=== PATIENT | male | born 1995 | race Caucasian/White ===

== ENCOUNTER 2016-08-15 19:14 | Emergency (ER) | payer OTHER ==
[~2016-08-15] VITALS: Ht 172.7 cm; Wt 86.4 kg
[2016-08-15 19:17] VITALS: BP 138/73; TEMP 98.9
[2016-08-15] MEDS ORDERED: ZOLOFT 100MG100 MG PO (19:20)
[2016-08-15] MEDS ORDERED: NORCO 325 MG-51 TAB PO (20:54)
[2016-08-15 21:09] VITALS: PULSE 74
== END 2016-08-15 21:09 | disposition home or self-care (01) ==
LOC: COL.ER 19:14
DX: S06.0X0A Concussion without loss of consciousness, initial encounter (principal); S40.212A Abrasion of left shoulder, initial encounter; S40.211A Abrasion of right shoulder, initial encounter; S40.812A Abrasion of left upper arm, initial encounter; S40.811A Abrasion of right upper arm, initial encounter; S00.03XA Contusion of scalp, initial encounter; S00.83XA Contusion of other part of head, initial encounter; M54.2 Cervicalgia; Y04.0XXA Assault by unarmed brawl or fight, initial encounter; Y92.039 Unspecified place in apartment as the place of occurrence of the external cause; F41.9 Anxiety disorder, unspecified; F32.9 Major depressive disorder, single episode, unspecified
CPT/HCPCS: J3010